=== PATIENT | female | born 1940 | race Caucasian/White ===

== ENCOUNTER → 2017-04-11 | Outpatient (CLI) | payer MEDICARE ==
[~2017-04-11] MED LIST: BUPIVACAINE MPF 0.25% 10 ML VIAL. ONE; IOHEXOL 300 MG/ML 50 ML VIAL. ONE; LIDOCAINE 1% PF 30 ML VIAL. ONE; methylPREDNISolone ACETATE 80 MG/ML VIAL. ONE
== END ==
LOC: SURG 08:54
PROVIDERS: ATTEND Anesthesiology Pain Medicine
DX: M16.11 Unilateral primary osteoarthritis, right hip (principal); Z72.89 Other problems related to lifestyle
CPT/HCPCS: 20610; 77002; J1040; J2001; J3490; Q9967

== ENCOUNTER → 2017-05-02 | Outpatient (CLI) | payer MEDICARE | END | disposition home or self-care (01) | LOC: SURG 10:46 | PROVIDERS: ATTEND Anesthesiology Pain Medicine | DX: M16.12 Unilateral primary osteoarthritis, left hip (principal) | CPT/HCPCS: 20610; 77002; J1040; J2001; J3490; Q9967 ==

== ENCOUNTER → 2018-01-09 | Outpatient (CLI) | payer MEDICARE | END | disposition home or self-care (01) | LOC: SURG 10:38 | PROVIDERS: ATTEND Anesthesiology Pain Medicine | DX: M16.11 Unilateral primary osteoarthritis, right hip (principal); Z72.89 Other problems related to lifestyle; M19.90 Unspecified osteoarthritis, unspecified site; Z79.899 Other long term (current) drug therapy; Z87.891 Personal history of nicotine dependence | CPT/HCPCS: 20610; 77002; J1040; J2001; J3490; Q9967; 20611 ==

== ENCOUNTER → 2019-08-12 | Outpatient (CLI) | payer MEDICARE ==
--- NOTE | 2019-08-12 13:26 | RAD ---
EXAM: CT Chest without IV contrast INDICATION: Meeks Virus Symptoms. Family member positive. Patient previously tested negative. TECHNIQUE: Multi-detector row CT images were acquired from the thoracic inlet through the upper abdomen without the use of IV contrast. Sagittal and coronal images were acquired from the transaxial data. All CT scans performed at this facility utilize dose optimization techniques as appropriate to the exam, including the following: Automated exposure control and adjustment of the mA and/or KV according to patient size (this includes techniques or standardized protocols for targeted exams where dose is indication/reason for exam). COMPARISON: None FINDINGS: The absence of IV contrast limits evaluation of soft tissue pathology. CARDIOVASCULAR: Ectasia of the ascending thoracic aorta to 4.4 cm diameter. No evidence of an intramural hematoma. Scattered mural calcifications. Three-vessel arch. Normal size heart. MEDIASTINUM & SAM: Dominant inferior pole right thyroid lobe nodule measuring 2.2 cm and containing internal calcifications. Smaller 6 mm left thyroid lobe nodule also containing internal calcifications. Both recommended for elective ultrasound when clinically appropriate. No mediastinal or hilar adenopathy. LUNGS: Bilateral lower lobe predominant peripheral groundglass attenuation opacities are present, also affecting the lateral segment of the right middle lobe to a slightly lesser extent. There is a crazy paving appearance to the lateral basal segment right lower lobe. PLEURAL SPACE: No pleural effusions or pneumothorax. OSSEOUS & SOFT TISSUE: Unremarkable ABDOMEN: The visualized portions of the upper abdomen are unremarkable. IMPRESSION: CT findings compatible with an atypical pneumonia. Although not specific, these findings are consistent with the previously described imaging appearance of meeks virus pneumonia. Correlate clinically. I have notified the technologist to, using droplet precautions, isolate the patient and assist me in contacting the referring provider regarding these findings. Electronically signed by: Alonzo Pathak MD (08/12/2019 1:23 PM) [id number]
[2019-08-12 13:40] LABS: BASO % 1 % (0-3); EOS % 0 % (0-3); HEMATOCRIT 42.2 % (36.0-47.0); LYMPH # 0.8 x10^3/uL (1.0-4.8); LYMPH % 17 % (24-48); MEAN CORPUSCULAR HEMOGLOBIN 33 pg (25-35); MEAN CORPUSCULAR HGB CONC 33 g/dL (31-37); MEAN CORPUSCULAR VOLUME 101 fL (79-100); MONO # 0.4 x10^3/uL (0.0-1.1); MONO % 8 % (0-9); NEUT # 3.6 x10^3uL (1.8-7.7); NEUT % 75 % (31-73); PLATELET COUNT 135 x10^3/uL (140-400); RED CELL DISTRIBUTION WIDTH 13.3 % (11.5-14.5); WHITE BLOOD COUNT 4.9 x10^3/uL (4.0-11.0)
[2019-08-12 13:50] LABS: CALCIUM 7.7 mg/dL (8.5-10.1); CREATININE 0.9 mg/dL (0.6-1.0); GFR 60.7; POTASSIUM 3.8 mmol/L (3.5-5.1)
[2019-08-12 13:56] LABS: ALBUMIN 3.3 g/dL (3.4-5.0); ALBUMIN/GLOBULIN RATIO 0.9 (1.0-1.7); TOTAL BILIRUBIN 0.4 mg/dL (0.2-1.0)
== END | disposition home or self-care (01) ==
LOC: DXRAD 12:54
PROVIDERS: ATTEND Specialist
DX: R50.9 Fever, unspecified (principal)
CPT/HCPCS: 36415; 71250; 80053; 84145; 85025; 87040

== ENCOUNTER → 2020-11-11 | Outpatient (CLI) | payer MEDICARE ==
--- NOTE | 2020-11-11 16:20 | RAD ---
Site ID: [id number] EXAMINATION: Right lower extremity duplex venous ultrasound. TECHNIQUE: DVT protocol. Multiple sonographic images with color Doppler and waveform interrogation we re performed of the right lower extremity veins with compression and augmentation maneuvers. INDICATION: 80 years Female : . . Right leg pain. FINDINGS: The right lower extremity veins from the groin to below the knee veins were examined with n ormal color-flow, compressibility and normal waveform demonstrated. The great saphenous vein visualiz ed portion proximally is patent. IMPRESSION: No evidence of DVT in the right lower extremity. Electronically signed by: Loy Abraham MD (11/11/2020 4:18 PM) [id number]
--- NOTE | 2020-11-11 16:46 | RAD ---
EXAMINATION: CT Chest Without IV contrast. INDICATION:80 years, Female, shortness of breath.. COMPARISON: 08/12/2019. TECHNIQUE: Spiral CT was obtained from the jugular notch through the posterior costophrenic recess. 3 -D MIPS, sagittal and coronal reformats were obtained. Exposure: One or more of the following individualized dose reduction techniques were utilized for thi s examination: 1. Automated exposure control 2. Adjustment of the mA and/or kV according to patient size 3. Use of iterative reconstruction technique. FINDINGS: LUNGS/PLEURA: Central airways are patent. No focal consolidation, pleural effusion or pneumothorax. S ubsegmental atelectasis versus scarring in bibasilar lungs, right middle lobe and lingula No suspicio us pulmonary nodule.. MEDIASTINUM: No pathologic mediastinal or hilar adenopathy. Unchanged ascending thoracic aortic aneur ysm measures up to 4.3 cm in diameter. Mild atherosclerotic calcifications of the thoracic aorta. Pul monary artery is normal in caliber. Unchanged in calcified focus in the left cardiophrenic fat. The h eart is normal in size. No pericardial effusion. No detectable calcified coronary atherosclerosis. Th ere is a 2.4 cm right thyroid nodule with punctate calcifications, unchanged since prior exam. Additi onal, smaller nodules in the left lobe of the thyroid gland. Esophagus is unremarkable. AXILLA/SOFT TISSUE: No supraclavicular or axillary adenopathy. Regional soft tissues are within raj l limits. UPPER ABDOMEN: Unchanged simple appearing cyst in the left hepatic lobe measures 2.3 cm. Small hiatal hernia. Uncomplicated duodenal diverticulum. BONES: No evidence of acute fractures or aggressive osseous lesions. Multilevel degenerative changes in the spine. IMPRESSION: 1. No acute pulmonary findings. 2. Unchanged ascending thoracic aortic aneurysm measures up to 4.3 cm in diameter. 3. Similar 2.4 cm right thyroid nodule with punctate calcifications. Recommend dedicated thyroid ultr asound for further evaluation. Electronically signed by: Carolyn Solis MD (11/11/2020 4:43 PM) [id number]
== END ==
LOC: US 15:51
PROVIDERS: ATTEND Specialist
DX: I71.2 Thoracic aortic aneurysm, without rupture (principal); E04.1 Nontoxic single thyroid nodule; M79.604 Pain in right leg
CPT/HCPCS: 71250; 93971

== ENCOUNTER → 2020-11-22 | Outpatient (CLI) | payer MEDICARE ==
--- NOTE | 2020-11-22 17:06 | RAD ---
EXAM: THYROID ULTRASOUND. HISTORY: Thyroid nodule. COMPARISON: 11/11/2020. FINDINGS: Sonographic evaluation of the thyroid gland was performed and evaluated using ACR TI-RADS c riteria. Right lobe: The right lobe measures 5.1 x 2.3 x 2.2 cm. Nodule #1. Maximum size: 2.6 cm; Other 2 dimensions 1.7 cm. Location: lower pole, difficult to visualize at the thoracic inlet. ACR TI-RADS risk category: TR4 (4-6 points): FNA if 1.5 cm, follow-up if 1-1.4 cm in 1, 2, 3, and 5 y ears. Nodule #2. Maximum size: 1.5 cm; Other 2 dimensions 1.5 x 1.1 cm. Location: mid pole. ACR TI-RADS risk category: TR4 (4-6 points): FNA if 1.5 cm, follow-up if 1-1.4 cm in 1, 2, 3, and 5 y ears. Left lobe: The left lobe measures 3.5 x 1.6 x 1.4 cm. Nodule #3. Maximum size: 1.3 cm; Other 2 dimensions 1.1 x 0.7 cm. Location: lower pole. ACR TI-RADS risk category: TR3 (3 points): FNA if 2.5 cm, follow-up if 1.5-2.4 cm in 1, 3, and 5 year s. Nodule #4. Maximum size: 1.0 cm; Other 2 dimensions 0.9 x 0.6 cm. Location: upper pole. ACR TI-RADS risk category: TR4 (4-6 points): FNA if 1.5 cm, follow-up if 1-1.4 cm in 1, 2, 3, and 5 y ears. Isthmus: The isthmus measures 3 mm. IMPRESSION/RECOMMENDATION: 1. A TI-RADS 4 nodule at the extreme right lower pole measures 2.6 cm and corresponds with the findin g of CT. Ultrasound-guided final aspiration could be performed if stability is not already known. 2. Otherwise, follow-up of this and other smaller nodules could be performed in one year. Electronically signed by: Mercedes Neville MD (11/22/2020 5:03 PM) [id number]
== END ==
LOC: US 14:53
PROVIDERS: ATTEND Specialist
DX: E04.2 Nontoxic multinodular goiter (principal)
CPT/HCPCS: 76536

== ENCOUNTER → 2021-06-08 | Outpatient (CLI) | payer MEDICARE ==
--- NOTE | 2021-06-08 11:12 | RAD ---
EXAMINATION: Thyroid sonogram INDICATION: Multinodular goiter. COMPARISON: 11/22/2020 TECHNIQUE: Real-time grayscale and color Doppler imaging of the thyroid gland was performed per bonifacio col. FINDINGS: The right thyroid lobe measures: 4.7 x 2.2 x 2.6 cm. The left thyroid lobe measures: 3.4 x 1.5 x 1.5 cm. The isthmus measures: 0.2 cm. Estimated total number of nodules >/= 1cm: 4 Number of spongiform nodules >/= 2cm not described below (TR1): Several. Nodule #1: Maximum size: 2.3 cm Location: Inferior right thyroid lobe. Composition: Solid or almost completely solid (2 points) Echogenicity: Hyperechoic or isoechoic (1 point) Shape: [id number] (3 points) Margins: Smooth (0 points) Echogenic foci: None or large comet-tail artifacts (0 points) ACR TI-RADS total points: 6. ACR TI-RADS risk category: 4 Significant change in size (>/= 20% in two dimensions and minimal increase of 2 mm): No. Change in features: No. Change in ACR TI-RADS risk category: No. Nodule #2: Maximum size: 1.3 Location: Inferior left thyroid lobe. Composition: Solid or almost completely solid (2 points) Echogenicity: Hyperechoic or isoechoic (1 point) Shape: [id number]-[id number] (0 points) Margins: Smooth (0 points) Echogenic foci: None or large comet-tail artifacts (0 points) ACR TI-RADS total points: 3. ACR TI-RADS risk category: 3 Significant change in size (>/= 20% in two dimensions and minimal increase of 2 mm): No. Change in features: No. Change in ACR TI-RADS risk category: No. Nodule #3: Maximum size: 1.4 Location: Superior right thyroid lobe. Composition: Solid or almost completely solid (2 points) Echogenicity: Very hypoechoic (3 points) Shape: Uhyms-orpa-xidf (0 points) Margins: Smooth (0 points) Echogenic foci: None or large comet-tail artifacts (0 points) ACR TI-RADS total points: 5. ACR TI-RADS risk category: 4 Significant change in size (>/= 20% in two dimensions and minimal increase of 2 mm): No. Change in features: No. Change in ACR TI-RADS risk category: Yes. Nodule #4: Maximum size: 1.0 Location: Superior left thyroid lobe. Composition: Solid or almost completely solid (2 points) Echogenicity: Hyperechoic or isoechoic (1 point) Shape: Ugabi-zzhf-zjww (0 points) Margins: Smooth (0 points) Echogenic foci: Macrocalcifications (1 point) ACR TI-RADS total points: 4. ACR TI-RADS risk category: 4 Significant change in size (>/= 20% in two dimensions and minimal increase of 2 mm): No. Change in features: No. Change in ACR TI-RADS risk category: Yes. IMPRESSION: 1. Dominant nodule within the inferior right thyroid lobe measuring 2.3 cm. This is not significantly changed compared to the prior study, allowing for differences in imaging and measurement technique. TI-RADS Category 4. Fine-needle aspiration is recommended if not previously performed or not well cli nically feasible. 2. 1.0 cm superior left thyroid nodule (TI-RADS Category 4), 1.4 cm superior right thyroid nodule (TI -RADS Category 4), 1.3 cm inferior left thyroid nodule (TI-RADS Category 3). Sonographic follow-up is recommended. ACR TI-RADS recommendations TR5 (?7 points) - FNA if ? 1cm, follow-up if 0.5 - 0.9 cm every year for 5 years TR4 (4-6 points) - FNA if ? 1.5cm, follow-up if 1 - 1.4 cm in 1, 2, 3 and 5 years TR3 (3 points)- FNA if ? 2.5cm, follow-up if 1.5 - 2.4 cm in 1, 3 and 5 years TR2 (2 points) & TR1 (0 points) - No FNA or follow-up *Decision to biopsy should include other considerations such as patient demographics and relevant cli nical information. Reference: TIRADS 2017 J Am Jazmyne Radiol 2017;14:587-595 Electronically signed by: Latonia Vasquez MD (06/08/2021 11:09 AM) [id number]
== END ==
LOC: US 09:47
PROVIDERS: ATTEND Otolaryngology
DX: E04.2 Nontoxic multinodular goiter (principal)
CPT/HCPCS: 76536

== ENCOUNTER → 2021-07-04 | Outpatient (CLI) | payer MEDICARE ==
--- NOTE | 2021-07-04 12:34 | RAD ---
EXAM: DUAL ENERGY X-RAY ABSORPTIOMETRY (DEXA). HISTORY: Postmenopausal screening. FINDINGS: The lowest measured T-score is -0.9 in the right hip, based on a bone mineral density of 0. 842 g/cm^2. Refer to the worksheets for full detail. No comparison examinations are available. IMPRESSION: 1. Normal. Bone mineral density yields a T-score of -1.0 or greater. Fracture risk is low. 2. FRAX report: Not calculated. METHODOLOGY: Dual energy x-ray absorptiometry was performed to measure bone mineral density. The foll owing analysis is based on the 2019 Official Positions of the International Society for Clinical Dens itometry: Measurements of the hips and the average of L1-L4 are preferred. When the spine and/or hip cannot be feasibly measured or interpreted, or in the setting of hyperparathyroidism, distal radial bone minera l density may be measured. The lumbar spine T-score is based on the average bone mineral density of L1-L4. In the setting of art ifact or anatomic abnormality, some lumbar levels may be excluded, and the remaining levels used for calculation. A single lumbar level is not used for diagnosis, and if only a single level is available for assessment, another anatomic site will be used to assign a diagnosis. The hip T-score is based on the bone mineral density measurement of the femoral neck or total proxima l femur of either side, whichever is lowest. Bilateral mean values are not used for diagnosis. The forearm T-score is derived from 33% of the distal radius of the nondominant forearm. Electronically signed by: Latonia Vasquez MD (07/04/2021 12:32 PM) [id number]
== END ==
LOC: DXRAD 11:27
PROVIDERS: ATTEND Specialist
DX: M85.9 Disorder of bone density and structure, unspecified (principal); Z78.0 Asymptomatic menopausal state
CPT/HCPCS: 77080